=== PATIENT | male | born 1960 | race Two or more races ===

== ENCOUNTER 2017-05-22 11:36 | Emergency (ER) | payer BC ==
[2017-05-22 11:57] VITALS: BP 144/87
--- NOTE | 2017-05-22 12:14 | EDM.PDOC ---
ED HPI GENERAL MEDICAL PROBLEM - General Chief Complaint: ENT Problem Stated Complaint: PAIN IN EARS Time Seen by Provider: 05/22/17 11:38 Source of Information: Reports: Patient, [employer] History Limitations: Reports: No Limitations - History of Present Illness INITIAL COMMENTS - FREE TEXT/NARRATIVE: HISTORY AND PHYSICAL: History of present illness: [Patient comes to the emergency room complaining of right ear fullness, which has been present for the past 3 weeks. He hears an echoing sound in his ears. No pain or drainage from his ear. Denies dizziness. Has no recent illness or infection. Does not have a local PCP. Denies fever, chills, cough, sore throat and runny nose. Denies difficulty swallowing. No chest pain, SOA or difficulty breathing. No recent trauma or injury. 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 Past medical history: As per history of present illness and as reviewed below otherwise noncontributory. Surgical history: As per history of present illness and as reviewed below otherwise noncontributory. Social history: No reported history of drug or alcohol abuse. Family history: As per history of present illness and as reviewed below otherwise noncontributory. Physical exam: HEENT: Atraumatic, normocephalic. TM's are pearly maurer. Mild effusion to R, none on the left. No cerumen. Nares are patent and with out erythema. Oral mucous membranes are pink and moist. No tonsillar swelling or erythema. There is an area of firm white exudate present to left tonsillar area. unable to remove, as patient was unable to tolerate. Unable to determine if tonsillar stone or gross to oral mucous membranes. Throat clear. Lungs: Clear to auscultation, breath sounds equal bilaterally, chest nontender. Heart: S1S2, regular, negative for clicks, rubs, or murmur. Abdomen: Soft, nondistended, nontender. Negative for masses, guarding or rebound. Pelvis: Stable nontender. Genitourinary: Deferred. Rectal: Deferred. Extremities: Ambulatory without assistance. Neurovascular unremarkable. Neuro: Awake, alert, oriented. Motor and sensory unremarkable throughout. Exam nonfocal. Impression: [R ear congestion Foreign body left tonsillar area] Plan: [Recommend antihistamine and decongestant to relieve fullness of his ear - Zyrtec and Sudafed. Recommend establishing care with a local PCP for further evaluation of the growth in his left tonsillar area. May do warm salt water gargle and monitor for improvement. Patient's in agreement with plan.] Definitive disposition and diagnosis as appropriate pending reevaluation and review of above. - Related Data Allergies Allergy/AdvReac Type Severity Reaction Status Date / Time No Known Allergies Allergy Verified 05/22/17 11:57 Home Meds: Home Meds . [No Known Home Meds] 05/22/17 [History] Past Medical History - Past Health History Medical/Surgical History: Denies Medical/Surgical History Social & Family History - Family History Family Medical History: Noncontributory - Tobacco Use Smoking Status *Q: Current Every Day Smoker Years of Tobacco use: 20 Packs/Tins Daily: 1 - Caffeine Use Caffeine Use: Reports: None - Recreational Drug Use Recreational Drug Use: No ED ROS ENT - Review of Systems Review Of Systems: ROS reveals no pertinent complaints other than HPI. ED EXAM, ENT - Physical Exam Exam: See Below Course - Vital Signs Last Recorded V/S: Last Vital Signs Temp 97.1 F 05/22/17 11:53 Pulse 65 05/22/17 11:53 Resp 18 05/22/17 11:53 BP 144/87 H 05/22/17 11:53 Pulse Ox 93 L 05/22/17 11:53 Departure - Departure Time of Disposition: 12:15 Disposition: Home, Self-Care 01 Condition: Good Clinical Impression: Congestion of right ear - Discharge Information Instructions: Earache Referrals: PCP,None [Primary Care Provider] - Forms: ED Department Discharge Additional Instructions: The following information is given to patients seen in the emergency department who are being discharged to home. This information is to outline your options for follow-up care. We provide all patients seen in our emergency department with a follow-up referral. The need for follow-up, as well as the timing and circumstances, are variable depending upon the specifics of your emergency department visit. If you don't have a primary care physician on staff, we will provide you with a referral. We always advise you to contact your personal physician following an emergency department visit to inform them of the circumstance of the visit and for follow-up with them and/or the need for any referrals to a consulting specialist. The emergency department will also refer you to a specialist when appropriate. This referral assures that you have the opportunity for follow-up care with a specialist. All of these measure are taken in an effort to provide you with optimal care, which includes your follow-up. Under all circumstances we always encourage you to contact your private physician who remains a resource for coordinating your care. When calling for follow-up care, please make the office aware that this follow-up is from your recent emergency room visit. If for any reason you are refused follow-up, please contact the [facility] emergency department at and asked to speak to the emergency department charge nurse. [address] [address] Establish care with a primary care provider at the clinic listed above. Follow-up there in the next 48-72 hours. Recommend Claritin 10 mg daily. This is an antihistamine. A decongestant will help relieve the fluid behind her ear. Get some Sudafed. This is available [id number] but you have to ask the pharmacist for it. Return to ER as needed as discussed.
== END 2017-05-22 12:17 | disposition home or self-care (01) ==
LOC: MW.ED 11:36
DX: T17.208A Unspecified foreign body in pharynx causing other injury, initial encounter (principal); H83.8X1 Other specified diseases of right inner ear; F17.210 Nicotine dependence, cigarettes, uncomplicated
CPT/HCPCS: 99282